=== PATIENT | female | born 1980 | race Two or more races ===

== ENCOUNTER 2019-03-25 11:25 | Emergency (ER) | payer OTHER ==
[~2019-03-25] VITALS: Ht 172.7 cm; Wt 90.7 kg
== END 2019-03-25 18:03 | disposition home or self-care (01) ==
LOC: ER 11:25
DX: B34.9 Viral infection, unspecified (principal); B96.0 Mycoplasma pneumoniae [M. pneumoniae] as the cause of diseases classified elsewhere